=== PATIENT | female | born 1980 | race Two or more races ===

== ENCOUNTER 2018-11-06 12:32 | Emergency (ER) | payer OTHER ==
[2018-11-06 12:50] VITALS: BP 129/82
--- NOTE | 2018-11-06 13:00 | UC ---
Upper Extremity HPI - HPI Summary HPI Summary: c/o bilateral wrist pain for many months. dx'd with carpal tunnel syndrome months ago but today it is the worst it has ever been. unable to grab items or care for herself due to pain/numbness. daughter had to stay home from school today to help patient make food, bathe. she is currently wearing braces on both wrists. - History of Current Complaint Chief Complaint: UCUpperExtremity Stated Complaint: ARM PAIN Time Seen by Provider: 11/06/18 12:34 Hx Obtained From: Patient Hx Last Menstrual Period: 10/24/18 ?: No Onset/Duration: Gradual Onset Severity Initially: Mild Severity Currently: Severe Pain Intensity: 7 Pain Scale Used: 0-10 Numeric Character: Throbbing, Burning Aggravating Factor(s): Movement, Flexion, Extension Alleviating Factor(s): Nothing Associated Signs And Symptoms: Positive: Numbness/Tingling - Allergies/Home Medications Allergies/Adverse Reactions: Allergies Allergy/AdvReac Type Severity Reaction Status Date / Time No Known Allergies Allergy Verified 11/06/18 12:50 Home Medications: Home Medications Albuterol HFA INHALER* [Ventolin HFA Inhaler*] 2 puff INH Q4H PRN 11/06/18 [ History Confirmed 11/06/18] PMH/Surg Hx/FS Hx/Imm Hx Previously Healthy: Yes - Surgical History Surgical History: Yes Surgery Procedure, Year, and Place: Csection - Social History Alcohol Use: Rare Substance Use Type: None Smoking Status (MU): Light Every Day Tobacco Smoker Amount Used/How Often: 1 PPD Review of Systems All Other Systems Reviewed And Are Negative: Yes Constitutional: Positive: Negative Skin: Positive: Negative Neurovascular: Positive: Decreased Sensation Musculoskeletal: Positive: Other: - wrist pain bilat Neurological: Positive: Weakness, Paresthesia, Numbness - BILAT WRISTS Physical Exam Triage Information Reviewed: Yes Appearance: Well-Appearing Vital Signs: Initial Vital Signs Temp 97.8 F 11/06/18 12:44 Pulse 69 11/06/18 12:44 Resp 16 11/06/18 12:44 BP 129/82 11/06/18 12:44 Pulse Ox 99 11/06/18 12:44 Vital Signs Reviewed: Yes Musculoskeletal: Positive: No Edema, Strength Limited @, ROM Limited @ - wrists bilat Neurological: Positive: Alert Skin Exam: Normal Upper Extremity Course/Dx - Course Course Of Treatment: severe worsening carpal tunnel syndrome; bilat. unable to care for herself or hold items. sending to ortho for carpal release consult. for pain today short burst of steroids. - Differential Dx/Diagnosis Differential Diagnosis/HQI/PQRI: Arthritis, Bursitis, Other Provider Diagnosis: Carpal tunnel syndrome on both sides Discharge - Sign-Out/Discharge Documenting (check all that apply): Patient Departure All imaging exams completed and their final reports reviewed: No Studies - Discharge Plan Condition: Good Disposition: HOME Prescriptions: predniSONE [Deltasone 20 MG TAB] 20 mg PO DAILY #7 tablet Patient Education Materials: Paresthesia (ED) Forms: *Work Release Referrals: Sarah Holman MD [Primary Care Provider] - Marcy Victoria MD [Medical Doctor] - 7 Days Additional Instructions: Please make an appt with the orthopedic - Billing Disposition and Condition Condition: GOOD Disposition: Home
== END 2018-11-06 13:12 | disposition home or self-care (01) ==
LOC: UCEAST 12:32
DX: G56.03 Carpal tunnel syndrome, bilateral upper limbs (principal); F17.210 Nicotine dependence, cigarettes, uncomplicated
CPT/HCPCS: 99211; G0463

== ENCOUNTER 2018-12-02 07:38 | Day surgery (SDC) | payer OTHER ==
--- NOTE | 2018-11-26 14:00 | HP ---
PREOPERATIVE HISTORY AND PHYSICAL: DATE OF SURGERY/ADMISSION: 12/02/18 DATE OF OFFICE VISIT/ENCOUNTER: 11/12/18 ATTENDING SURGEON: Marcy Victoria MD * (DICTATED BY EMELI LLANES) PROCEDURE: Right wrist carpal tunnel release. CHIEF COMPLAINT: Numbness and tingling, right hand. 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 She has had a couple of years of symptoms of numbness and tingling in her hands, equally bad in the right and the left. She is right handed. There was no injury to either hand. She has had nerve conduction studies done in the past which showed bilateral carpal tunnel syndrome per her report. She had these tests done in [place]. She has had used braces at night but they are not always helpful. She states most of the numbness is in the middle and ring fingers. The symptoms have become significant enough that she has elected to proceed with surgery. She would at this time like to have a right carpal tunnel release. The patient just recently moved back to [place] from [place]. She has not yet established a primary care physician, but has an appointment on 12/11/18. She had previously been on some prescription medications but has not had any of them renewed recently. PAST MEDICAL HISTORY: 1. Asthma. 2. Hypercholesterolemia. 3. Arthritis. 4. GERD. 5. Depression/anxiety. PAST SURGICAL HISTORY: 1. . 2. Tubal ligation. 3. [place] teeth extraction. MEDICATIONS: No active medications. ALLERGIES: No known drug allergies. FAMILY MEDICAL HISTORY: Heart disease, diabetes and cancer. 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 She is a current smoker. She has smoked a pack per day for the past 20 years. She denies recreational drug use and alcohol use. REVIEW OF SYSTEMS: Is negative for general, cephalic, cardiovascular, respiratory, GI, , other musculoskeletal, integumentary, endocrine, neurologic and hematologic symptoms. Infectious Disease: Negative for MRSA, hepatitis C, HIV. PHYSICAL EXAMINATION GENERAL: Well-developed, well-nourished 38-year-old female, in no acute distress. VITAL SIGNS: Height 5 feet 11 inches, weight 244 pounds. Pulse rate 68, blood pressure 118/78. HEENT: Normocephalic, atraumatic. Pupils were equal, round and reactive to light and accommodation. Extraocular movements are intact. Throat is clear. NECK: Supple. No palpable lymph nodes. PULMONARY: Lungs are clear to auscultation bilaterally. No wheezes, rales or rhonchi. CARDIOVASCULAR: Regular rate and rhythm. S1, S2. No murmurs, rubs or gallops. No edema. ABDOMEN: Positive bowel sounds, soft, nontender. NEUROLOGICAL: Alert and oriented x3. Cranial nerves II through XII are intact. Sensation is intact to light touch. MUSCULOSKELETAL: On exam of her bilateral hands, there is no thenar wasting, but she has weakness with some abduction. She has a positive Tinel sign on both median nerves of the wrist. Sensation is intact to light touch. She can fully flex and extend the fingers and wrist motion is normal. Median nerve compression test is positive for symptoms in the middle finger on the right. ASSESSMENT: Bilateral carpal tunnel syndrome. PLAN: The patient is scheduled to undergo a right wrist carpal tunnel release with Dr. Victoria on 12/02/18. She will return to the office 10 days postop for followup and suture removal. A prescription for Ultracet was e-scribed to the patient's pharmacy for postoperative pain management. EMELI LLANES [id number]/[facility] #: [id number] MTDD
[~2018-12-02 07:38] MED LIST: Buffered Lidocaine 0.9% SYRIN* 5 ML/SYR SYRINGE INTRADERM ONE; Dexamethasone TAB* 4 MG PO ONE; DiMENhydriNATE IV* 50 MG/ML VIAL IV PUSH PRN; Famotidine IV* 10 MG/ML 2 ML (20 mg) IV ONE; Lactated Ringers 1000 ML Bag* 1,000 ML IV SCH; Naloxone* 0.4 MG/ML 1 ML VIAL IV PRN; Ondansetron TAB* 4 MG PO ONE; PROCHLORPERAZINE INJ 5 MG/ML 2 ML VIAL IV PRN; fentaNYL* 50 MCG/ML 2 ML VIAL (100 MCG VIAL) IV PRN; oxyCODONE/Acetamin 5/325 MG* TAB PO PRN
[2018-12-02] MEDS ORDERED: Ondansetron ODT TAB* 4 MG ONE (08:11)
[2018-12-02] MEDS ORDERED: Dexamethasone TAB* 4 MG ONE (08:11)
[2018-12-02] MEDS ORDERED: Famotidine IV* 10 MG/ML 2 ML (20 mg) ONE (08:12)
[2018-12-02] MEDS ORDERED: Lidocaine 1% INJ* 10 MG/ML 30 ML SDV ONE (08:58)
[2018-12-02] MEDS ORDERED: fentaNYL* 50 MCG/ML 2 ML VIAL (100 MCG VIAL) ONE (09:32)
[2018-12-02] MEDS ORDERED: Midazolam* 1 MG/ML 5 ML VIAL (5 MG) ONE (09:32)
[2018-12-02] MEDS ORDERED: KETAMINE HCL* 50 MG/ML 10 ML VIAL ONE (10:01)
[2018-12-02] MEDS ORDERED: Lidocaine 2% PF * 5 ML VIAL ONE (10:21)
[2018-12-02] MEDS ORDERED: Ketorolac INJ* 30 MG/ML 1 ML VIAL ONE (10:21)
[2018-12-02] MEDS ORDERED: Propofol* 10 MG/ML 20 ML BTL ONE (10:21)
[2018-12-02 10:37] VITALS: BP 120/82
--- NOTE | 2018-12-02 15:53 | OP ---
CC: Dr. Victoria OPERATIVE REPORT: DATE OF OPERATION: 12/02/18 DATE OF : 76 SURGEON: Marcy Victoria MD BOMBSIGHT SPECIALIST: EMELI Neely ANESTHESIA: Local MAC. PRE-OP DIAGNOSIS: Right carpal tunnel syndrome. POST-OP DIAGNOSIS: Right carpal tunnel syndrome. OPERATIVE PROCEDURE: Right carpal tunnel release. ESTIMATED BLOOD LOSS: Zero. TOURNIQUET TIME: Approximately 8 minutes. INDICATIONS FOR PROCEDURE: Jo is a 38-year-old female with numbness and tingling in the median ner ve distribution of the right hand. She presents for right carpal tunnel release. DESCRIPTION OF PROCEDURE: The patient was brought to the operating room, was given a sedation anesth etic and a local infiltration of 10 mL of 1% plain lidocaine in the palm of her right hand. The skin of her right hand and forearm was prepped and draped in the usual sterile fashion. The hand and for earm were exsanguinated and the tourniquet elevated to 250 mmHg. A longitudinal incision was made in the palm in line with the ring finger. We dissected through the subcutaneous tissue down to the tra nsverse carpal ligament. The ligament was divided sharply with a knife and then more proximally with the scissors. The nerve was dissected free from the surrounding tissue and there was an area of mod erate compression at the midportion of the ligament. The wound was irrigated and the skin edges reap proximated with 4- 0 nylon suture. The wound was dressed with Xeroform, 4x4, Webril, and an Nicholas wrap . The patient tolerated the procedure well and was brought to the recovery room in good condition. [id number]/[facility] #: [id number]
== END 2018-12-02 10:54 | disposition home or self-care (01) ==
LOC: OREAST 07:38
PROVIDERS: ATTEND Orthopaedic Surgery
DX: G56.01 Carpal tunnel syndrome, right upper limb (principal); J45.909 Unspecified asthma, uncomplicated; E78.00 Pure hypercholesterolemia, unspecified; M19.90 Unspecified osteoarthritis, unspecified site; K21.9 Gastro-esophageal reflux disease without esophagitis; F41.8 Other specified anxiety disorders
CPT/HCPCS: A9270-GY; J1885; J2250; J2704; J3010; J8540

== ENCOUNTER 2019-01-16 07:12 | Day surgery (SDC) | payer OTHER ==
--- NOTE | 2019-01-12 09:38 | HP ---
PREOPERATIVE HISTORY AND PHYSICAL: DATE OF ADMISSION: 01/16/19 [facility] CHIEF COMPLAINT: Left hand numbness and tingling. HISTORY OF PRESENT ILLNESS: Jo is a 38-year-old woman, who has bilateral carpal tunnel syndrome confirmed with nerve conduction studies. She has had a right carpal tunnel release and did very well with that. She presents now for left carpal tunnel release. PAST MEDICAL HISTORY: Asthma, hypercholesterolemia, arthritis, reflux, depression, anxiety. PAST SURGICAL HISTORY: , tubal ligation, wisdom teeth extraction, and right carpal tunnel release. MEDICATIONS: None. ALLERGIES: None. FAMILY HISTORY: Heart disease, diabetes, and cancer. 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 She smokes a pack of cigarettes a day for the last 20 years. Denies recreational drug use and alcohol use. REVIEW OF SYSTEMS: Negative for cephalic, cardiovascular, respiratory, gastrointestinal, genitourinary, other musculoskeletal, skin, neurologic, endocrine, and hematologic symptoms. Negative for MRSA, hepatitis C, and HIV. PHYSICAL EXAMINATION GENERAL: She is a well-developed, well-nourished 38-year-old female, in no acute distress. VITAL SIGNS: Height is 5 feet 11 inches, weight 244 pounds. Pulse rate is 72, blood pressure 134/84, respirations 18. HEENT: Exam is unremarkable. Her eye movements are concentric. NECK: She has good range of motion of her neck without pain. No masses are palpated. LUNGS: Clear to auscultation. Good inspiratory effort. No wheezing. CARDIAC: Regular rate and rhythm without murmur. PERIPHERAL VASCULAR: She has palpable pulses and no peripheral edema. EXTREMITIES: She has positive Tinel sign of the median nerve at the left wrist and she can make a full fist and fully extend her fingers. She has weakness with thumb abduction. NEUROLOGICAL: She is alert and oriented without focal deficit. IMPRESSION: Left carpal tunnel syndrome. PLAN: The plan is for left carpal tunnel release. The patient will follow up with me approximately 10 days postop. [id number]/[facility] #: [id number] SAM
[~2019-01-16 07:12] MED LIST changes: -Buffered Lidocaine 0.9% SYRIN* 5 ML/SYR SYRINGE INTRADERM ONE; +Buffered Lidocaine 1% SYRIN* 1 ML/SYRINGE INTRADERM ONE; -Dexamethasone TAB* 4 MG PO ONE; -DiMENhydriNATE IV* 50 MG/ML VIAL IV PUSH PRN; +Famotidine IV* 10 MG/ML 2 ML (20 mg) ONE; +Lidocaine 1% INJ* 10 MG/ML 30 ML SDV ONE; -Naloxone* 0.4 MG/ML 1 ML VIAL IV PRN; -Ondansetron TAB* 4 MG PO ONE; -PROCHLORPERAZINE INJ 5 MG/ML 2 ML VIAL IV PRN; -fentaNYL* 50 MCG/ML 2 ML VIAL (100 MCG VIAL) IV PRN; -oxyCODONE/Acetamin 5/325 MG* TAB PO PRN
[2019-01-16] MEDS ORDERED: Midazolam* 1 MG/ML 5 ML VIAL (5 MG) ONE (07:34)
[2019-01-16] MEDS ORDERED: fentaNYL* 50 MCG/ML 2 ML VIAL (100 MCG VIAL) ONE (07:34)
[2019-01-16] MEDS ORDERED: DiMENhydriNATE IV* 50 MG/ML VIAL IV PUSH PRN (08:11)
[2019-01-16] MEDS ORDERED: Acetaminophen TAB* 325 MG PO PRN (08:11)
[2019-01-16] MEDS ORDERED: Propofol* 10 MG/ML 20 ML BTL ONE ×2 (08:28→08:31)
[2019-01-16] MEDS ORDERED: Lidocaine 2% PF * 5 ML VIAL ONE (08:31)
[2019-01-16] MEDS ORDERED: Ketorolac INJ* 30 MG/ML 1 ML VIAL ONE (08:31)
[2019-01-16] MEDS ORDERED: Ondansetron INJ* 2 MG/ML VIAL ONE (08:31)
[2019-01-16 08:44] VITALS: BP 109/71
--- NOTE | 2019-01-16 10:12 | OP ---
CC: Dr. Victoria OPERATIVE NOTE: DATE OF OPERATION: 01/16/19 DATE OF : 76 SURGEON: Dr. Victoria. COIL SHAPER: EMELI Neely. ANESTHESIA: Local MAC. PRE-OP DIAGNOSIS: Left carpal tunnel syndrome. POST-OP DIAGNOSIS: Left carpal tunnel syndrome. OPERATIVE PROCEDURE: Left carpal tunnel release. ESTIMATED BLOOD LOSS: Zero. TOURNIQUET TIME: About 10 minutes. INDICATIONS FOR PROCEDURE: Jo is a 38-year-old female with numbness and tingling in the median ner ve distribution of her left hand. She presents for left carpal tunnel release. DESCRIPTION OF PROCEDURE: The patient was brought to the operating room, was given a sedation anesth etic, and a local infiltration of 10 cc of 1% plain lidocaine in the palm of her left hand. Skin of her left hand and forearm was prepped and draped in the usual sterile fashion. The hand and forearm were exsanguinated and the tourniquet elevated to 250 mmHg. A longitudinal incision was made in the palm in line with the ring finger. We dissected through the subcutaneous tissue down to the transver se carpal ligament. The ligament was divided sharply with a knife and then more proximally with the scissors. The nerve was dissected free from the surrounding tissue and there was an area of moderate compression at the midportion of the ligament. The wound was irrigated and the skin edges reapproxi mated with 4- 0 nylon suture. The wound was dressed with Xeroform, 4x4, Webril, and an Nicholas wrap. The patient tolerated the procedure well and was brought to the recovery room in good condition. [id number]/[facility] #: [id number]
== END 2019-01-16 09:11 | disposition home or self-care (01) ==
LOC: OREAST 07:12
PROVIDERS: ATTEND Orthopaedic Surgery
DX: G56.02 Carpal tunnel syndrome, left upper limb (principal); Z72.0 Tobacco use
CPT/HCPCS: J1885; J2250; J2405; J2704; J3010

== ENCOUNTER 2019-05-22 14:42 | Emergency (ER) | payer OTHER ==
[2019-05-22 14:55] VITALS: BP 117/72
--- NOTE | 2019-05-22 15:03 | UC ---
Respiratory Complaint HPI - HPI Summary HPI Summary: 38 yo female presents with sinus pain/pressure/congestion and intermittently productive cough. She tells me that about 2 weeks ago she developed her sinus symptoms and began to take OTC cold medicine and mucinex with no relief. About 5 days ago developed an intermittently productive cough that has worsened over the last 1-2 days. She feels that she is wheezing and has congestion in her chest. She does have a hx of asthma and has an albuterol inhaler at home, but states that it is very old and is unsure how effective it is. She does feel short of breath at times when coughing a lot. Denies fever, chills, sore throat , chest pain, n/v. - History of Current Complaint Chief Complaint: UCRespiratory Stated Complaint: POSS URI Time Seen by Provider: 05/22/19 15:03 Hx Obtained From: Patient Hx Last Menstrual Period: current Onset/Duration: Gradual Onset Severity Initially: Mild Severity Currently: Moderate Pain Intensity: 4 Pain Scale Used: 0-10 Numeric Character: Cough: Productive - Allergies/Home Medications Allergies/Adverse Reactions: Allergies Allergy/AdvReac Type Severity Reaction Status Date / Time No Known Allergies Allergy Verified 05/22/19 14:55 Home Medications: Home Medications Atorvastatin* [Lipitor*] 10 mg PO 1700 05/22/19 [History Confirmed 05/22/19] PMH/Surg Hx/FS Hx/Imm Hx Respiratory History: Asthma GI/ History: Gastroesophageal Reflux - Surgical History Surgical History: Yes Surgery Procedure, Year, and Place: . DENTAL EXTRACTIONS. RIGHT HAND CARPAL TUNNEL RELEASE - Family History Known Family History: Positive: Respiratory Disease - Social History Lives: With Family Alcohol Use: Rare Substance Use Type: None Smoking Status (MU): Heavy Every Day Tobacco Smoker Type: Cigarettes Amount Used/How Often: 1 PPD X 20+ YEARS - trying to quit, down to half a pack a day Have You Smoked in the Last Year: Yes Review of Systems All Other Systems Reviewed And Are Negative: Yes Constitutional: Positive: Negative Skin: Positive: Negative Eyes: Positive: Negative ENT: Positive: Nasal Discharge, Sinus Congestion, Sinus Pain/Tenderness Respiratory: Positive: Cough Cardiovascular: Positive: Negative Gastrointestinal: Positive: Negative Neurovascular: Positive: Negative Neurological: Positive: Negative Psychological: Positive: Negative Physical Exam - Summary Physical Exam Summary: GENERAL: NAD. WDWN. No pain distress. SKIN: No rashes, sores, lesions, or open wounds. HEENT: Head: AT/NC Eyes: Conjunctiva clear without inflammation or discharge. Ears: Hearing grossly normal. TMs intact, no bulging, erythema, or edema. Nose: Nasal mucosa mildly swollen and erythematous with yellow/ clear discharge. TTP maxillary and frontal sinus. Positive post nasal drip Throat: Posterior oropharynx without exudates, erythema, or tonsillar enlargement. Uvula midline. NECK: Supple. Nontender. No lymphadenopathy. CHEST: Mild wheezing throughout. No r/r. No accessory muscle use. Breathing comfortably and in no distress. CV: RRR. Without m/r/g. Pulses intact. Cap refill <2seconds NEURO: Alert. PSYCH: Age appropriate behavior. Triage Information Reviewed: Yes Vital Signs: Initial Vital Signs Temp 98.1 F 05/22/19 14:51 Pulse 71 05/22/19 14:51 Resp 20 05/22/19 14:51 BP 117/72 05/22/19 14:51 Pulse Ox 100 05/22/19 14:51 Vital Signs Reviewed: Yes Respiratory Course/Dx - Course Course Of Treatment: CXR: IMPRESSION: NO ACTIVE CARDIOPULMONARY DISEASE. Duoneb: reports feeling better s/p and less tightness in chest with easier to take a deep breath Suspect sinusitis with asthma exacerbation/bronchitis. Rx for augmentin, prednisone, and a new albuterol inhaler for her to use. Continue OTC medications. - Differential Dx/Diagnosis Provider Diagnosis: Sinusitis, Bronchitis Discharge - Sign-Out/Discharge Documenting (check all that apply): Patient Departure All imaging exams completed and their final reports reviewed: Yes - Discharge Plan Condition: Stable Disposition: HOME Prescriptions: Albuterol HFA INHALER* [Ventolin HFA Inhaler*] 1 - 2 puff INH Q6H PRN #1 mdi PRN Reason: Cough Amoxicillin/Clavulanate TAB* [Augmentin TAB 875*] 875 mg PO BID #14 tab predniSONE TAB* [Deltasone 20 MG TAB*] 40 mg PO DAILY #10 tab Patient Education Materials: Sinusitis (ED), Acute Bronchitis (ED) Referrals: Shannon Cramer MD [Primary Care Provider] - Additional Instructions: If you develop a fever, shortness of breath, chest pain, new or worsening symptoms - please call your PCP or go to the ED immediately. - Billing Disposition and Condition Condition: STABLE Disposition: Home
[2019-05-22] MEDS ORDERED: Albuterol/Ipratropium NEB.SOL* Albuterol 2.5 MG/Ipratropium 0.5 MG 3 ML INH ONE (15:09)
== END 2019-05-22 16:03 | disposition home or self-care (01) ==
LOC: UCEAST 14:42
DX: J32.9 Chronic sinusitis, unspecified (principal); J40 Bronchitis, not specified as acute or chronic; J45.909 Unspecified asthma, uncomplicated; F17.210 Nicotine dependence, cigarettes, uncomplicated
CPT/HCPCS: 71046; A9270-GY